=== PATIENT | male | born 1990 | race Caucasian/White ===

== ENCOUNTER 2018-02-17 20:24 | Emergency (ER) | payer SELFPAY ==
[~2018-02-17] VITALS: Ht 185.4 cm; Wt 106.8 kg
[2018-02-17 21:09] VITALS: BP 134/81
[2018-02-17] MEDS ORDERED: LIDOCAINE 1% PF 2 ML VIAL. ID ONE (21:30)
[2018-02-17] MEDS ORDERED: DIPHTH,PERTUSS(ACELL),TET TOX 0.5 ML DISP.SYRIN. VAX IM ONE (21:30)
[2018-02-17] MEDS ORDERED: HYDR-971 PO (22:10)
[2018-02-17] MEDS ORDERED: CEPH-264 PO (22:10)
[2018-02-17] MEDS ORDERED: IBUP-1060 PO (22:10)
[2018-02-17] MEDS ORDERED: HYDROcodone/APAP 5/325MG 1 TAB TABLET PO ONE (22:30)
[2018-02-17] MEDS ORDERED: CEPHALEXIN 250 MG CAPSULE. PO ONE (22:30)
--- NOTE | 2018-02-17 22:46 | PHYS DOC ---
Past Medical History Past Medical History: Arthritis, Bronchitis Past Surgical History: No Surgical History Alcohol Use: Rarely Drug Use: None Adult General Chief Complaint Chief Complaint: FINGER INJURY HPI HPI Patient is a 27 year old male who presents with right index finger pain. Patient has had some swelling and pain at the base of the fingernail the right index finger over the last 24-48 hours. Earlier today, his used a needle to poke a hole in the area. She states there was some purulent-appearing fluid that was expressed. He presents to the ER with ongoing symptoms. No recent injury. No fever or chills. Review of Systems Review of Systems Constitutional: Denies fever or chills HENT: Denies nasal congestion or sore throat : Denies dysuria Musculoskeletal: Denies back pain Integument: Denies rash or skin lesions Neurologic: Denies headache All other systems were reviewed and found to be within normal limits, except as documented in this note. Current Medications Current Medications Current Medications Medications (Trade) Dose Ordered Sig/Glenn Start Time Stop Time Status Last Admin Dose Admin Acetaminophen/ Hydrocodone Bitart (Lortab 5/325) 2 tab 1X ONCE 02/17/18 22:30 02/17/18 22:31 DC 02/17/18 22:29 2 TAB Cephalexin HCl (Keflex) 500 mg ONCE ONCE 02/17/18 22:30 02/17/18 22:31 DC 02/17/18 22:28 500 MG Diphtheria/ Tetanus/Acell Pertussis (Boostrix) 0.5 ml ONCE ONCE 02/17/18 21:30 02/17/18 21:31 DC 02/17/18 21:54 0.5 ML Lidocaine HCl (Xylocaine-Mpf 1% 2ml Vial) 6 ml 1X ONCE 02/17/18 21:30 02/17/18 21:31 DC 02/17/18 21:51 4 ML Allergies Allergies Allergies Coded Allergies Type Severity Reaction Last Updated Verified No Known Drug Allergies 02/17/18 No Physical Exam Physical Exam Constitutional: Well developed, well nourished, no acute distress, non-toxic appearance HENT: Normocephalic, atraumatic, bilateral external ears normal, oropharynx moist Neck: Normal range of motion Cardiovascular:Heart rate regular rhythm, no murmur Skin: Warm, dry Extremities: right index finger with small paronychia present at the base of the nail. Otherwise normal exam of the finger. Neurologic: Alert and oriented X 3 Psychologic: Affect normal Current Patient Data Vital Signs Vital Signs Date Time Temp Pulse Resp B/P (MAP) Pulse Ox O2 Delivery O2 Flow Rate FiO2 02/17/18 22:29 18 98 02/17/18 21:09 97.6 91 134/81 (98) Room Air 97.6 EKG EKG [] Radiology/Procedures Radiology/Procedures [] Course & Med Decision Making Course & Med Decision Making Pertinent Labs and Imaging studies reviewed. (See chart for details) Patient is seen for a paronychia of the right index finger. 4 Morris of lidocaine was used to provide anesthesia via a digital block of that finger. Suture scissors were then used to free the nail from the eponychia. Her was a small amount of purulent fluid expressed following this procedure. Band-Aid was then placed. Patient was given a dose of Tionesta and Keflex in the ER. He is discharged home on the same. Opiate precautions are discussed. He is advised not to drive while taking opiate medications. He is advised to return to the ER for any new or worsening symptoms. Dragon Disclaimer Dragon Disclaimer This electronic medical record was generated, in whole or in part, using a voice recognition dictation system. Departure Departure Impression: Primary Impression: Paronychia Disposition: 01 HOME, SELF-CARE Condition: GOOD Patient Instructions: Paronychia, [id number] Scripts Cephalexin (KEFLEX) 500 Mg Capsule 500 MG PO QID, #40 CAP Prov: KIM SERVIN DO 02/17/18 Hydrocodone/Apap 5-325 (NORCO 5-325 TABLET) 1 Each Tablet 1-2 EACH PO PRN Q6HRS PRN for severe pain, #10 as needed for pain Prov: KIM SERVIN DO 02/17/18 Ibuprofen (IBUPROFEN) 800 Mg Tablet 800 MG PO PRN TID PRN for PAIN, #20 TAB take with food or milk to avoid upsetting stomach Prov: KIM SERVIN DO 02/17/18 KIM SERVIN DO Feb 17, 2018 22:46
== END 2018-02-17 22:31 | disposition home or self-care (01) ==
LOC: ER 20:24
DX: L03.011 Cellulitis of right finger (principal); M19.90 Unspecified osteoarthritis, unspecified site
CPT/HCPCS: 64450; 90471; 90715; 99284